=== PATIENT | male | born 1980 | race African-American/Black ===

== ENCOUNTER 2021-01-05 17:48 | Emergency (ER) | payer MEDICAID, OTHER ==
[~2021-01-05] VITALS: Ht 170.2 cm; Wt 65.8 kg
[2021-01-06 01:49] VITALS: BP 122/55
== END 2021-01-06 01:53 | disposition home or self-care (01) ==
LOC: ER 18:04
DX: J45.909 Unspecified asthma, uncomplicated (principal); R11.2 Nausea with vomiting, unspecified; R21 Rash and other nonspecific skin eruption; Z20.822 Contact with and (suspected) exposure to COVID-19
CPT/HCPCS: 36415; 87426

== ENCOUNTER 2024-12-21 03:07 | Emergency (ER) | payer MEDICAID, OTHER ==
[~2024-12-21] VITALS: Ht 172.7 cm; Wt 82.8 kg
[2024-12-21 03:10] VITALS: BP 122/76; PULSE 92; RESP 18; TEMP 97; O2SAT 96
--- NOTE | 2024-12-21 05:02 | ED.PDOC ---
SOB-HPI HPI Comments PT CAME TO THE ERWITH CC OF FLU LIKE SYMPTOMS, PT REPORTS CHILLS, N/V/D, AND LETHARGY. PT IS A&OX4 RR EVEN AND REGULAR NO DISTRESS NOTED AT THIS TIME, VSS. PT DENIES CP SOB. Chief Complaint: Flu like Time Seen by MD: 03:33 Reviewed notes: Nurses Notes, Medications, Allergies Information Source: Patient Mode of Arrival: Ambulatory Past Medical History PAST MEDICAL HISTORY: Asthma Surgical History: Denies all surgeries Family History Family History: Reviewed,noncontributory to illness, No family hx of Cancer, No family hx of DM, No family hx of Heart breanna, No family hx of HTN, No family hx ofKidney breanna, No family hx of Liver breanna, No family hx of Lung breanna, No family hx of Stroke Social History Smoker: Non-Smoker Alcohol: Denies ETOH Use Drugs: Denies Drug Use Lives In: Home All Other Systems: Reviewed and Negative (SEE HPI) Physical Exam General Appearance: No Apparent Distress, Normal HEENT: Pharynx Normal, TMs Normal, Other (Bilateral tonsils erythemic grade 3 no noted exudate) Neck: Full Range of Motion, Non-Tender Respiratory: Lungs Clear, No Respiratory Distress, Normal Breath Sounds Cardiovascular: No Murmur, Normal Peripheral Pulses, Regular Rate/Rhythm Breast Exam: Deferred Gastrointestinal: Non Tender, Soft Genitalia: Deferred Pelvic: Deferred Rectal: Deferred Extremities: Normal capillary refill, Normal range of motion Musculoskeletal : Apperance: Normal Neurologic: Alert, No Motor Deficits, Normal Affect, Normal Mood, No Sensory Deficits Cerebellar Function: Normal Reflexes: NOT DONE Skin: Dry, Normal Color, Warm Lymphatic: No Adenopathy Was a procedure done? Was a procedure done?: No Differential Dx Differential Diagnosis: Pneumonia, Peritonsillar Abscess, Peritonsillar Cellulitis, URI X-Ray, Labs, Meds, VS Vital Signs Date Time Temp Pulse Resp B/P (MAP) Pulse Ox O2 Delivery O2 Flow Rate FiO2 12/21/24 03:10 97.0 92 18 122/76 96 97.0 X-Ray, Labs, Meds, VS Comment Acute tonsillitis script trial of antibiotics and ibuprofen advised to take medication as prescribed side effects discussed. Advised to follow up with his PCP in 2-3 days as necessary ER return precautions given patient indicates understanding agrees with discharge plan of care. Time of Reevaluation: 03:33 Reevaluation 1ST: Unchanged Reevaluation 2ND: Improved Patient Education/Counseling: Diagnosis, Treatment, Need For Follow Up Family Education/Counseling: No Family Present SEPSIS Sepsis Screen Date sepsis recognized/suspect: Dec 21, 2024 Time Sepsis recognized/suspect: 311 Recent Procedure: No On Antibiotic Therapy: No Respiratory Rate >20: No Heart Rate >90: Yes Temp<36 C (96.8 F) or >38.3 C: No SBP <90 or MAP <65 mmHG: No New Acute Mental Status Change: No Is the patient on CPAP, BIPAP,: No Vital Signs Date Time Temp Pulse Resp B/P (MAP) Pulse Ox O2 Delivery O2 Flow Rate FiO2 12/21/24 03:10 97.0 92 18 122/76 96 97.0 Departure 1 Departure Time of Disposition: 05:17 Impression: Primary Impression: Acute tonsillitis Qualified Codes: J03.90 - Acute tonsillitis, unspecified Disposition: 01 HOME / SELF CARE / HOMELESS Condition: Stable e-Prescriptions Ibuprofen (Ibuprofen) 800 Mg Tab 800 MG PO Q8HP PRN for 7 Days, #21 TAB Prov: MERLIN NORTON 12/21/24 Amoxicillin & Pot Clavulanate (AUGMENTIN TABLET) 875 Mg Tb 875 MG PO BID for 7 Days, #14 TAB Prov: MERLIN NORTON 12/21/24 Discharged With: Self Critical Care Note Critical Care Time?: No Stability Stability form required: No Heart Score Heart Score: Heart Score Response (Comments) Value History N/A 0 EKG N/A 0 Age 45-64 1 Risk Factors N/A 0 Troponin N/A 0 Total 1 MERLIN NORTON Dec 21, 2024 05:02
[2024-12-21] MEDS ORDERED: AUG875T PO (05:18)
[2024-12-21] MEDS ORDERED: IBUP-1456 PO (05:18)
== END 2024-12-21 05:21 | disposition home or self-care (01) ==
LOC: ER 03:07
DX: J03.90 Acute tonsillitis, unspecified (principal); J45.909 Unspecified asthma, uncomplicated; Z79.899 Other long term (current) drug therapy